=== PATIENT | female | born 1935 | race Caucasian/White ===

== ENCOUNTER → 2017-04-13 | Day surgery (SDC) | payer MEDICARE, BC ==
[~2017-04-13] MED LIST: ACETAMINOPHEN325 MG PO; ASPIR 8181 MG PO; ASPIRIN; B-12 DOTS500 MCG PO; BENICAR40 MG PO; CALCIUM +VIT D PO; CENTRUM SILVER1 EAC4 PO; CENTRUM SILVER1 TAB PO; CLARITIN10 M2 PO; CLARITIN10 M3 PO; COLACE100 MG PO; CRESTOR10 MG PO; CRESTOR20 MG PO; CRESTOR40 MG PO; FEOSOL325 MG PO; FISH OIL 1,2001 EAC1 PO; FISH OIL 1,4001 EACH PO; LEVOTHROID (SY25 MCG PO; LEVOTHROID (SY50 MCG PO; LEVOTHYROXINE50 MCG PO; LEXAPRO10 MG PO; NITROGLYCERIN0.4 MG SL; NORVASC10 MG PO; PAIN RELIEF650 MG PO; PEDIAPRED OPHTH; PEDIAPRED5 MG/5 ML OPHTH; PEPCID AC20 MG PO; PEPCID40 MG PO; PLAVIX75 MG PO; PRED FORTE 1%5 ML OPHTH; PRESERVISION A1 EAC1 PO; PRESERVISION A1 EAC2 PO; PRESERVISION L1 EACH PO; PROLIA60 MG/ML IM; TOPROL XL25 MG PO; TOPROL XL50 MG PO; TYLENOL EXTRA500 MG PO; TYLENOL325 MG PO; ULTRAM50 MG PO; VITAMIN B-1250 MCG PO; VITAMIN B-12500 MCG PO; VITAMIN C100 MG PO; VITAMIN C1000 MG PO; VITAMIN C500 M1 PO; VITAMIN D-40400 UNIT PO; VITAMIN D3400 UNIT PO; VITAMIN E100 UNI1 PO; VITAMIN E400 UNI4 PO; XARELTO10 MG PO
--- NOTE | ~2017-04-13 | OR ---
PATIENT'S NAME: DANIELLA COYNE [facility] AGE: 81 Y [address] ROOM: [place] [address] LOCATION: [facility] [place] DATE: 04/13/2017 OR/Procedure Report DISCHARGE DATE: FAMILY PHYSICIAN: Gerson Lopez MD ATTENDING PHYSICIAN: ALIYAH CURIEL SURGEON: Luis Murry CRNA HUMAN [employer]OGRAPHY FACULTY MEMBER: DATE OF PROCEDURE: 04/13/2017 PROCEDURE PERFORMED: Right femoral nerve cortisone injection. PROCEDURE IN DETAIL: The patient was brought to [facility] services for a right femoral nerve cortisone injection per request of Dr. Aliyah Curiel. After coordinating the procedure with permit, risks and benefits were discussed and accepted by the patient. These risks included bleeding, infection, and right quadriceps muscle weakness. The patient was instructed to make sure, she ambulated with assistance throughout this day following the procedure. The patient and family member accepted the risks and agreed to continue as planned. The patient was then laid supine on the operative cart, sterilely prepped and draped per usual fashion. 1 mL of Xylocaine was given in the injection site. An ultrasound guided needle was advanced under direct ultrasound vision until the femoral nerve was stimulated by way of electronic stimulator down to 0.3 milliamps. The quadriceps muscles showed twitch and the injection was given at this time. Injection medicine included 10 mg of dexamethasone, 3 mL of 0.25% Marcaine plain, and 7 mL of preservative-free normal saline. The patient tolerated this procedure well. Again after the procedure, the patient was without complaints and instructed to ambulate with assistance and to follow up with Dr. Curiel for future care. LUIS MURRY CRNA BLH/modl /[id number] d: 04/13/17 1525 t: 04/24/17 0720, OPERATIVE SUMMARY
== END ==
LOC: GPOC 04-07 10:00 → GSDC 09:35
PROC: 3E0T33Z Introduction of Anti-inflammatory into Peripheral Nerves and Plexi, Percutaneous Approach (ICD-10-PCS; principal; 2017-04-13)
DX: M25.551 Pain in right hip (principal); I25.10 Atherosclerotic heart disease of native coronary artery without angina pectoris; E78.00 Pure hypercholesterolemia, unspecified; I10 Essential (primary) hypertension; K21.9 Gastro-esophageal reflux disease without esophagitis; F32.9 Major depressive disorder, single episode, unspecified; Z96.643 Presence of artificial hip joint, bilateral; M81.0 Age-related osteoporosis without current pathological fracture; Z98.41 Cataract extraction status, right eye; Z95.5 Presence of coronary angioplasty implant and graft; Z98.42 Cataract extraction status, left eye; Z79.899 Other long term (current) drug therapy
CPT/HCPCS: J1100